=== PATIENT | male | born 1950 | race Caucasian/White ===

== ENCOUNTER → 2017-11-08 | Outpatient (CLI) | payer MEDICARE, OTHER ==
[~2017-11-08] MED LIST: ALENDRONATE SOD70 MG PO; LEUCOVORIN CALCI5 MG PO; METHOTREXATE2.5 MG PO
== END | disposition home or self-care (01) ==
LOC: CDC 09:31
DX: Z01.810 Encounter for preprocedural cardiovascular examination (principal); H43.12 Vitreous hemorrhage, left eye; R00.1 Bradycardia, unspecified
CPT/HCPCS: 93000